=== PATIENT | male | born 1990 | race African-American/Black ===

== ENCOUNTER 2019-01-18 23:20 | Inpatient (IN) ==
[2019-01-18] MEDS ORDERED: DIPH/TET/ACEL PERT BOOSTER VACCINE 0.5 ML VIAL IM ONE (23:53)
[2019-01-18 23:56] LABS: Basophils % 0.9 % (0.0-0.8); Eosinophils # 0.1 10*3/uL (0.0-0.87); Eosinophils % 2.6 % (0.00-10.9); Hematocrit 40.4 VOL% (42.0-52.0); Hemoglobin 12.8 GM/DL (14.0-18.0); Lymphocytes # 2.1 10*3/uL (1.4-4.0); Lymphocytes % 89.5 % (21.2-54.2); Mean Corpuscular HGB Conc 31.7 GM/DL (32-36); Mean Corpuscular Volume 93.7 FL (87-102); Mean Platelet Volume 9.9 FL (9.6-12.0); Monocytes % 3.1 % (1.7-12.7); Neutrophils % 3.9 % (38.7-73.9); Platelet Count 211 T/CUMM (130-400); Red Blood Count 4.31 MC/CUMM (3.8-5.5); Red Cell Distribution Width 12.7 % (9.3-17.3); White Blood Count 2.3 T/CUMM (4-12)
[2019-01-19 00:03] LABS: PT Patient Result 10.8 SECS (9.6-12.2); Partial Thromboplastin Time 22.9 SECS (20.8-36.0)
[2019-01-19 00:09] LABS: Alanine Aminotransferase 175 U/L (16-61); Alkaline Phosphatase 85 U/L (45-117); Amylase 76 U/L (25-115); Aspartate Amino Transferase 135 U/L (0-37); Blood Urea Nitrogen 10 MG/DL (7-18); Calcium 8.9 MG/DL (8.5-10.1); Glucose 89 MG/DL (74-106); Osmolality,Calculated 280.1 MOS/KG (273-304); Total Protein 7.3 G/DL (6.4-8.3)
[2019-01-19] MEDS ORDERED: SODIUM BICARBONATE 50 MEQ/50 ML VIAL IV ONE ×5 (00:40→04:31)
[2019-01-19] MEDS ORDERED: HEPARIN/NACL 0.9% 2 UNITS/ML 500 ML IV ONE (00:45)
[2019-01-19] MEDS ORDERED: ceFAZolin 1,000 MG VIAL ONE (00:48)
[2019-01-19] MEDS ORDERED: SPRAY APPLICATOR KIT 1 EACH MISC ONE (01:09)
[2019-01-19] MEDS ORDERED: THROMBIN TOPICAL (RECOMBINANT) 5,000 UNIT VIAL TOP ONE ×2 (01:10→01:16)
[2019-01-19] MEDS ORDERED: MICROFIBRILLAR COLLAGEN POWDER 1 GM CAN TOP ONE ×2 (01:20→01:50)
[2019-01-19 01:24] LABS: ABG HCO3 12.7 MMOL/L (20-26); ABG PCO2 68.8 MM HG (35-48); ABG TCO2 16.8 MMOL/L (23-27); Glucose Heart Surgery 295 MG/DL (74-106); Hematocrit Heart Surgery 25.8 PERCENT (42-52); Hemoglobin Heart Surgery 8.3 G/DL (14.0-18.0)
[2019-01-19 01:30] LABS: ABG PH 6.993 (7.35-7.45)
[2019-01-19] MEDS ORDERED: MIDAZOLAM 10 MG/2 ML VIAL ONE (01:58)
[2019-01-19] MEDS ORDERED: EPINEPHrine 1 MG/ML VIAL ONE ×3 (02:32→04:28)
[2019-01-19] MEDS ORDERED: ATROPINE 1 MG/10 ML SYRINGE ONE (02:42)
[2019-01-19] MEDS ORDERED: EPINEPHrine 1 MG/10 ML SYRINGE ONE ×2 (02:43→04:27)
[2019-01-19] MEDS ORDERED: LACTATED RINGERS 1,000 ML IV ONE ×2 (03:02→04:04)
[2019-01-19] MEDS ORDERED: SODIUM CHLORIDE 0.9% 1,000 ML IV ONE ×4 (03:02→04:37)
[2019-01-19] MEDS ORDERED: ETOMIDATE 20 MG/10 ML VIAL IV ONE (03:05)
[2019-01-19] MEDS ORDERED: ROCURONIUM 100 MG/10 ML VIAL IV ONE ×2 (03:06→04:28)
[2019-01-19] MEDS ORDERED: PHENYLEPHRINE DRIP 40 MG/250 ML PREMIX IV PRN (03:20)
[2019-01-19] MEDS ORDERED: PHENYLEPHRINE DRIP 40 MG/250 ML PREMIX IV ONE ×2 (03:20→03:21)
[2019-01-19] MEDS ORDERED: CALCIUM CHLORIDE 1,000 MG/10 ML SYRINGE IV ONE (03:28)
[2019-01-19] MEDS ORDERED: MORPHINE 4 MG/1 ML VIAL IV PRN (03:31)
[2019-01-19 03:35] LABS: Basophils % 0.3 % (0.0-0.8); Hematocrit 25.9 VOL% (42.0-52.0); Immature Granulocytes % 1.6 %; Immature Granulocytes Absolute 0.05 #; Lymphocytes # 1.2 10*3/uL (1.4-4.0); Lymphocytes % 37.4 % (21.2-54.2); Mean Corpuscular HGB Conc 30.9 GM/DL (32-36); Mean Corpuscular Volume 94.9 FL (87-102); Mean Platelet Volume 11.7 FL (9.6-12.0); Monocytes % 2.6 % (1.7-12.7); Neutrophils % 57.1 % (38.7-73.9); Red Blood Count 2.73 MC/CUMM (3.8-5.5); Red Cell Distribution Width 14.7 % (9.3-17.3); White Blood Count 3.1 T/CUMM (4-12)
[2019-01-19] MEDS ORDERED: VASOPRESSIN 20 UNITS/ML VIAL ONE ×2 (03:35→03:38)
[2019-01-19 03:38] LABS: VBG Base Excess -12.7 MEQ/L (0-4); VBG HCO3 14.3 MEQ/L (24-28); VBG Oxygen Saturation 83.2 %; VBG PH 6.941; VBG PO2 60.6 MMHG (17-40)
[2019-01-19 03:40] LABS: ABG Base Excess -13.2 MMOL/L (-2.5-2.5); ABG HCO3 13.1 MMOL/L (20-26); ABG TCO2 23.9 MMOL/L (23-27); Glucose Heart Surgery 283 MG/DL (74-106); Hematocrit Heart Surgery 25.6 PERCENT (42-52); Hemoglobin Heart Surgery 8.2 G/DL (14.0-18.0); Potassium Heart/CVR 3.9 MMOL/L (3.5-5.1)
[2019-01-19 03:41] LABS: Platelet Count 70 T/CUMM (130-400)
[2019-01-19 03:53] LABS: ABG Base Excess -13.3 MMOL/L (-2.5-2.5); ABG HCO3 13.5 MMOL/L (20-26); ABG Oxygen Saturation 54.2 % (95-100); Glucose Heart Surgery 273 MG/DL (74-106); Hematocrit Heart Surgery 21.3 PERCENT (42-52); Hemoglobin Heart Surgery 6.8 G/DL (14.0-18.0); Potassium Heart/CVR 3.7 MMOL/L (3.5-5.1)
[2019-01-19 03:57] LABS: ABG PH 6.886 (7.35-7.45)
[2019-01-19 03:59] LABS: INR 2.4
[2019-01-19] MEDS ORDERED: VASOPRESSIN 100 UNITS in SODIUM CHLORIDE 0.9% 95 ML IV SCH (04:00)
[2019-01-19] MEDS ORDERED: DEXTROSE 5% LACTATED RINGERS 1,000 ML IV SCH (04:00)
[2019-01-19 04:05] LABS: PT Patient Result 25.4 SECS (9.6-12.2)
[2019-01-19 04:07] LABS: Partial Thromboplastin Time 198.4 SECS (20.8-36.0)
[2019-01-19 04:19] LABS: Alanine Aminotransferase 906 U/L (16-61); Albumin 0.9 G/DL (3.4-5.0); Alkaline Phosphatase 33 U/L (45-117); Aspartate Amino Transferase 594 U/L (0-37); Bilirubin,Total < 0.39 MG/DL (0.2-1.0); Blood Urea Nitrogen 10 MG/DL (7-18); Calcium 8.3 MG/DL (8.5-10.1); Glucose 272 MG/DL (74-106); Osmolality,Calculated 313.4 MOS/KG (273-304); Total Protein < 2.0 G/DL (6.4-8.3)
[2019-01-19 04:19] LABS: ABG HCO3 18.6 MMOL/L (20-26); ABG Oxygen Saturation 64.7 % (95-100); ABG TCO2 21.7 MMOL/L (23-27); Glucose Heart Surgery 243 MG/DL (74-106); Hemoglobin Heart Surgery 7.1 G/DL (14.0-18.0); Potassium Heart/CVR 3.3 MMOL/L (3.5-5.1)
[2019-01-19] MEDS ORDERED: CALCIUM CHLORIDE 1,000 MG/10 ML VIAL IV ONE (04:27)
[2019-01-19] MEDS ORDERED: PHENYLEPHRINE DRIP 20 MG/250 ML PREMIX IV ONE (04:27)
[2019-01-19] MEDS ORDERED: PHENYLEPHRINE 1 MG/10 ML SYRINGE IV ONE (04:28)
[2019-01-19] MEDS ORDERED: KETAMINE 500 MG/10 ML VIAL ONE (04:28)
[2019-01-19] MEDS ORDERED: fentaNYL 100 MCG/2 ML VIAL ONE (04:28)
[2019-01-19] MEDS ORDERED: SODIUM CHLORIDE 0.9% 4,000 ML IV ONE (04:28)
[2019-01-19] MEDS ORDERED: SODIUM CHLORIDE 0.9% 250 ML IV ONE (04:28)
[2019-01-19 04:41] LABS: Eosinophils 2 % (0-10); Lymphocytes 88 % (20-55); Reactive Lymphocytes 2+; Segmented Neutrophils 6 % (50-85)
[2019-01-19 04:42] LABS: Hypochromasia Slight; Platelet Estimate Normal
[2019-01-19 04:43] LABS: Total Cells Counted 100
[2019-01-19 05:23] LABS: Eosinophils 1 % (0-10); Hypochromasia 1+; Lymphocytes 42 % (20-55); Metamyelocytes 3 %; Myelocytes 1 %; Nucleated Red Blood Cells 2 (0-5); Segmented Neutrophils 50 % (50-85); Total Cells Counted 100
[2019-01-19 05:24] LABS: Platelet Estimate Decreased
[2019-01-19 06:48] VITALS: BP 91/33
[2019-01-19] MEDS ORDERED: cefOXitin 2,000 MG in SYRINGE 1 EACH IV SCH ×2 (07:30→08:00)
[2019-01-19] MEDS ORDERED: FAMOTIDINE 20 MG/2 ML VIAL IV SCH (09:00)
[2019-01-20 06:19] LABS: ABG PH 6.873 (7.35-7.45)
[2019-01-20 07:31] LABS: ABG PH 6.882 (7.35-7.45)
== END 2019-01-19 04:47 | disposition expired | DRG 167 ==
LOC: EDBD → EDUNIT# → N.ED 23:20 → N.ICU 01-19 00:03
PROVIDERS: ADMIT Surgery; ATTEND Surgery